=== PATIENT | male | born 1980 | race Caucasian/White ===

== ENCOUNTER → 2017-07-08 | Outpatient (CLI) | payer BC | LOC: COL.RAD 07:39 | DX: R14.2 Eructation (principal); R10.13 Epigastric pain; K21.9 Gastro-esophageal reflux disease without esophagitis; R12 Heartburn | CPT/HCPCS: A9541 ==

== ENCOUNTER → 2017-09-09 | Outpatient (CLI) | payer BC | LOC: COL.CARD 13:50 | DX: I49.3 Ventricular premature depolarization (principal); R00.2 Palpitations ==